=== PATIENT | female | born 1975 | race Caucasian/White ===

== ENCOUNTER 2017-04-07 05:45 | Day surgery (SDC) | payer OTHER ==
[2017-04-07] MEDS ORDERED: COLACE100 MG PO (08:15)
[2017-04-07] MEDS ORDERED: PERCOCET 5-3251 EACH PO (08:15)
== END 2017-04-07 10:35 | disposition home or self-care (01) ==
LOC: CIR.AMB 05:45
DX: K64.8 Other hemorrhoids (principal); K62.89 Other specified diseases of anus and rectum